=== PATIENT | male | born 1990 | race Caucasian/White ===

== ENCOUNTER → 2017-05-03 | Outpatient (CLI) | payer OTHER ==
[~2017-05-03] MED LIST: ANAPROX DS550 MG PO; CIPRO500 MG PO; MEDROL DOSEPAK4 MG PO; TRAMADOL HCL50 MG PO; VICODIN ES 7501 TAB PO
== END | disposition home or self-care (01) ==
LOC: US 13:46
DX: J18.9 Pneumonia, unspecified organism (principal); N50.3 Cyst of epididymis

== ENCOUNTER → 2020-04-01 | Outpatient (CLI) | payer BC, OTHER | END | disposition home or self-care (01) | LOC: COVID19 09:16 | PROVIDERS: ATTEND Internal Medicine | DX: U07.1 COVID-19 (principal) ==